=== PATIENT | male | born 1955 | race Caucasian/White ===

== ENCOUNTER 2025-04-15 11:36 | Emergency (ER) | payer MEDICARE, OTHER, SELFPAY ==
[2025-04-15] VITALS (7 sets, daily range): BP systolic 159; BP diastolic 101; PULSE 72–86; RESP 14–22; TEMP 36.6; O2SAT 96–98; BMI 27.1
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
--- NOTE | 2025-04-15 11:44 | EKG_ITS ---
[address] [address] [address], [place] [address] Test Date: 2025-04-15 Pat Name: Dimitri Gill Department: Room: Gender: Male Manufacturing Inspector: YOLANDA : [id number] Requested By: Order Number: [id number] Reading MD: Shakir Skelton MD Measurements Intervals Shaw Rate: 70 P: NH: QRS: 12 QRSD: 68 T: 36 QT: 420 QTc: 453 Interpretive Statements SINUS RHYTHM Electronically Signed On 04-16-2025 8:11:59 PDT by Shakir Skelton MD
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
[2025-04-15 11:54] LABS: Add Manual Diff / Slide Review NO; Hematocrit 45.2 % (41-53); Hemoglobin 15.6 g/dL (13.5-17.5); Lymphocytes Absolute Auto 1600 /uL (1100-4500); Mean Corpuscular HGB Conc 34.5 % (30-36); Mean Corpuscular Hemoglobin 31.5 PG (26-34); Mean Corpuscular Volume 91.4 fL (80-100); Platelet Count 102 X10^3/uL (150-400)
[2025-04-15 12:06] LABS: Alanine Aminotransferase 21 IU/L (<50); Albumin 4.2 g/dL (3.5-5.0); Albumin Globulin Ratio 1.6 (1.0-2.8); Alkaline Phosphatase 96 U/L (38-126); Blood Urea Nitrogen 20 mg/dL (9-20); Calcium 9.2 mg/dL (8.4-10.2); Carbon Dioxide 25 mmol/L (22-32); Chloride 107 mmol/L (98-107); Estimated Glomerular Filt Rate > 60 mL/min (>60); Globulin 2.6 g/dL (1.7-4.1); Glucose 95 mg/dL (70-99); HEMOLYSIS 32 (0-50); Lipase 225 U/L (23-300); Magnesium 2.1 mg/dL (1.6-2.3); Potassium 3.9 mmol/L (3.4-5.1); Sodium 139 mmol/L (137-145); Total Protein 6.8 g/dL (6.3-8.2)
[2025-04-15 12:26] LABS: INR 1.2 (0.9-1.3); Prothrombin Time 13.7 SECONDS (9.4-12.5)
[2025-04-15 12:29] LABS: PTT Partial Thromboplastin Tim 25 SECONDS (25.1-36.5)
== END 2025-04-15 14:26 | disposition home or self-care (01) ==
PROVIDERS: Emergency Provider Student in an Organized Health Care Education/Training Program; Family Provider Family Medicine; PCP Family Medicine
DX: S09.90XA Unspecified injury of head, initial encounter (principal); S30.811A Abrasion of abdominal wall, initial encounter; S50.01XA Contusion of right elbow, initial encounter; S30.1XXA Contusion of abdominal wall, initial encounter; M25.521 Pain in right elbow; R29.700 NIHSS score 0; V89.2XXA Person injured in unspecified motor-vehicle accident, traffic, initial encounter; Z79.01 Long term (current) use of anticoagulants
CPT/HCPCS: 36415; 70450; 71275; 72125; 73070; 74177; 80053; 83690; 83735; 85025; 85610; 85730; 86850; 86900; 86901; 93005; 99284; Q9967